=== PATIENT | female | born 1995 | race Hispanic/Latino ===

== ENCOUNTER 2025-03-14 10:28 | Emergency (ER) | payer OTHER ==
[2025-03-14] MEDS ORDERED: Lidocaine 1% PF 5 ML VIAL ONE (11:01)
== END 2025-03-14 12:03 | disposition home or self-care (01) ==
LOC: ERS 10:28
DX: S91.201A Unspecified open wound of right great toe with damage to nail, initial encounter (principal); E78.5 Hyperlipidemia, unspecified; E03.9 Hypothyroidism, unspecified; E11.9 Type 2 diabetes mellitus without complications; Z79.84 Long term (current) use of oral hypoglycemic drugs; Z79.890 Hormone replacement therapy; Z79.899 Other long term (current) drug therapy; W22.8XXA Striking against or struck by other objects, initial encounter; Y93.01 Activity, walking, marching and hiking
CPT/HCPCS: 11730; 99283